=== PATIENT | male | born 1985 | race Caucasian/White ===

== ENCOUNTER 2022-11-01 13:12 | Emergency (ER) | payer OTHER, SELFPAY ==
[2022-11-01 13:16] VITALS: BP 170/85; PULSE 71; RESP 16; TEMP 36.9; O2SAT 97; BMI 28.7
--- NOTE | 2022-11-01 13:18 | DI.RAD.S_ITS ---
PROCEDURE: XR FINGER LT MIN 2V INDICATIONS: fish hook stuck in ring finger TECHNIQUE: AP hand, 2 views of the 4th finger(s) acquired. COMPARISON: None. FINDINGS: Bones: No fractures demonstrated. No dislocations. No suspicious bony lesions. Soft tissues: No suspicious soft tissue calcifications. Fishing hook within the distal 4th digit soft tissues. IMPRESSION: Fishing hook within the distal 4th digit soft tissues. Dictated by: Bin Min M.D. on 11/01/2022 at 13:40 Approved by: Bin Min M.D. on 11/01/2022 at 13:42
[2022-11-01 13:33] VITALS: PULSE 80
--- NOTE | 2022-11-01 13:36 | ED_ITS ---
HPI - Extremity Injury (Upper) General Chief Complaint: Extremity Injury, Upper Stated Complaint: fish hook in lt ring finger Time Seen by Provider: 11/01/22 13:25 History of Present Illness HPI narrative: Patient presents with fishhook injury to left ring finger. Patient was fishing salmon when the hook got stuck in the tip of his ring finger. He went to urgent Care but he was referred to the ER for x-rays and possible removal because they could not be certain if the hook was in the bone or not. He is uncertain when his last tetanus shot was administered. Related Data Previous Rx's Medication Instructions Recorded doxycycline hyclate 100 mg capsule 100 mg PO BID #20 caps 11/01/22 Allergies Allergy/AdvReac Type Severity Reaction Status Date / Time No Known Drug Allergies Allergy Verified 11/01/22 13:16 Review of Systems Review of Systems Narrative: All others negative unless marked Musculoskeletal Comments: Reports: Foreign body left ring finger Exam Initial Vital Signs Initial Vital Signs: Vital Signs Temperature 98.4 F 11/01/22 13:16 Pulse Rate 71 11/01/22 13:16 Respiratory Rate 16 11/01/22 13:16 Blood Pressure 170/85 H 11/01/22 13:16 Pulse Oximetry 97 11/01/22 13:16 Oxygen Delivery Method Room Air 11/01/22 13:16 Const: Well-nourished, Well-developed, appears stated age Eyes: PERRL, EOMI, conjunctiva normal ENT: Atraumatic, dentition normal, mucous membranes moist RESP: unlabored Skin: Warm, Dry, fish hook in distal tip of L ring finger, moves all extremities Psych: affect normal, mood normal, not suicidal, not homicidal Procedures Foreign Body OTHER Foreign Body Removal Site: left and hand Description of foreign body: fish hook Sedation/Analgesia: none Technique: manual removal and removal with forceps Confirmed by:: direct visualization Complications: none Post-procedure exam: awake, alert Neurovascular: normal distal pulse and normal capillary fill Nerve Block Nerve Block 1: Local Anesthetic: lidocaine 1% Amount of anesthesia used (mL): 4 Side: left Nerve Blocks: digital Procedure Successful: Yes Patient Tolerated Procedure: Well and No complications Complications: none Course Course Course Narrative: [place] injury to finger. Removed per procedure note. Tetanus shot updated. Due to the fish hook being very deeply and water exposure will discharge with prophylactic antibiotics. Patient given signs and symptoms of infection and prescription sent to pharmacy of choice. ED return precautions discussed at bedside. Patient expressed understanding of the plan and is in agreement at this time. All questions answered at the time of discharge. Orders Ordered: Discontinued Medications Diphtheria/Tetanus/Acell Pertussis (Tet,Diph,Pertuss(Acell),Vac/Pf 0.5 Ml Syringe) 0.5 ml IM .ONCE ONE Stop: 11/01/22 13:51 Last Admin: 11/01/22 13:59 Dose: 0.5 ml Documented By: RB Lidocaine HCl (Lidocaine 1% 20 Ml) 20 ml SUBCUT NOW ONE Stop: 11/01/22 13:38 Last Admin: 11/01/22 13:43 Dose: 20 ml Documented By: RB Vital Signs Vital signs: Vital Signs - 8 hr 11/01/22 13:16 11/01/22 13:33 Temperature 98.4 F Pulse Rate 71 Pulse Rate [Left Radial] 80 Respiratory Rate 16 Blood Pressure 170/85 H Pulse Oximetry 97 Oxygen Delivery Method Room Air Discharge Plan Departure Patient Disposition: Home Clinical Impression: Fish hook in finger, Foreign body (FB) in soft tissue Instructions: DI for Cellulitis -- Adult Prescriptions: New doxycycline hyclate 100 mg capsule 100 mg PO BID Qty: 20 0RF Stand Alone Forms: Patient Portal/API
[2022-11-01] MEDS: LIDOCAINE 1% 20 ML SUBCUT (13:43)
[2022-11-01] MEDS: TET,DIPH,PERTUSS(ACELL),VAC/PF 0.5 ML SYRINGE IM (13:59)
[2022-11-01 14:22] VITALS: BP 168/77; PULSE 75; RESP 16; TEMP 36.7; O2SAT 98
== END 2022-11-01 14:23 | disposition home or self-care (01) ==
PROVIDERS: Emergency Provider Emergency Medicine
DX: S61.245A Puncture wound with foreign body of left ring finger without damage to nail, initial encounter (principal); W45.8XXA Other foreign body or object entering through skin, initial encounter; Z23 Encounter for immunization
CPT/HCPCS: 10120; 64450; 73140; 90471; 99283; 90715